=== PATIENT | male | born 1995 | race Caucasian/White ===

== ENCOUNTER 2016-06-14 05:27 | Emergency (ER) | payer OTHER ==
--- NOTE | 2016-06-14 06:00 | EDDOCDS ---
Nurse's Notes [facility] Name: Bogdan Nieves Age: 20 yrs Sex: Male : 1995 Arrival Date: 06/14/2016 Time: 05:27 Bed 10 Private MD: Diagnosis: Laceration without foreign body of scalp Presentation: 06/14 05:34 Presenting complaint: Patient states: slipped and fell, hit head on door hinge. denies af2 loc, nausea, or vomiting. This patient has no additional risk factors. Mechanism of Injury: resulted from a fall. Adult Sepsis Screening: The patient does not have new or worsening altered mentation. Patient's respiratory rate is less than 22. Systolic blood pressure is greater than 100. Patient has a qSOFA score of 0- Negative Sepsis Screen. Suicide/Homicide risk assessment- the patient denies having any suicidal and/or homicidal ideations and does not present with any other emotional, behavioral or mental health complaints. Status: The patient is an active duty early childhood services coordinator. Transition of care: patient was not received from another setting of care. 05:34 Acuity: LEAH Level 3 af2 05:34 Method Of Arrival: Walkin/Carried/Asstd af2 Triage Assessment: 05:36 General: Appears in no apparent distress, Behavior is cooperative. Pain: Denies pain. af2 Pt Declines HIV testing. Neurological: Level of Consciousness is awake, alert, obeys commands, Oriented to person, place, time, Reports no additional symptoms. Respiratory: Airway is patent Respiratory effort is even, unlabored. Derm: lac noted to left posterior head, approximately 2 cm. bleeding controlled, dressing in place. Historical: - Allergies: No known drug Allergies; - Home Meds: 1. none - PMHx: none; - PSHx: none; - Social history: Smoking status: Patient states was never smoker of tobacco. No barriers to communication noted, The patient speaks fluent Turkmen. - Family history: Not pertinent. - : The pt / caregiver states he / she is not on anticoagulants. Home medication list is obtained from the patient. - Exposure Risk Screening:: None identified. Screenin:49 Screening information is obtained from the patient. Fall risk: At risk due to prior 6 history of falls. Assistance ADL's: requires no assistance with activities of daily living. Abuse/DV Screen: The patient / caregiver reports he/she is: not in a situation that causes fear, pain or injury. Nutritional screening: No deficits noted. Advance Directives: Currently, there is no health care proxy. There is no active DNR order. There is no living will. home support is adequate. Assessment: 05:49 General: Appears in no apparent distress, slender, well developed, Behavior is jp6 appropriate for age, cooperative. Pain: Denies pain. Neurological: Level of Consciousness is awake, alert, Oriented to person, place, time. EENT: No deficits noted. Cardiovascular: No deficits noted. Respiratory: No deficits noted. GI: No deficits noted. : No deficits noted. Derm: Skin 3cm laceration back of left side of head. Musculoskeletal: No deficits noted. Vital Signs: 05:33 BP 144 / 75 RA Sitting; Pulse 68; Resp 18 S; Temp 96.9(O); Pulse Ox 99% on R/A; Weight af2 65.77 kg (R); Height 5 ft. 9 in. (175.26 cm) (R); Pain 0/10; 05:33 Body Mass Index 21.41 (65.77 kg, 175.26 cm) af2 Vitals: 05:33 Log In Time: June 14, 2016 at 05:26. af2 Jie Coma Score: 05:34 Eye Response: spontaneous(4). Verbal Response: oriented(5). Motor Response: obeys af2 commands(6). Total: 15. ED Course: 05:28 Patient visited by Jacqui Chao. gjb 05:28 Patient moved to Waiting gjb 05:35 Triage Initiated af2 05:38 Patient visited by Eliana Peters RN. af2 05:38 Patient moved to 10 af2 05:39 Rajesh Whitehead DO is Attending Physician. cs11 05:39 Patient visited by Rajesh Whitehead DO. cs11 05:40 Shasha Cornell RN is Primary Nurse. jp6 05:48 Rene Pang [facility] is Referral Physician. cs11 05:49 The patient / caregiver is instructed regarding the plan of care and ED course. jp6 05:49 No IV's were initiated during this patient's visit. jp6 05:51 Assist provider with laceration repair using trell, Laceration was 2.6 to 7.5 cm. jp6 with a simple repair. Performed by Rajesh Whitehead DO Set up tray. Patient tolerated well. Order Results: There are currently no results for this order. Outcome: 05:49 Discharge ordered by Provider. cs11 05:58 Discharge Assessment: Patient awake, alert and oriented x 3. No cognitive and/or jp6 functional deficits noted. Patient verbalized understanding of disposition instructions. patient administered narcotics - no. The following High Risk Discharge criteria are identified: None. Discharged to home ambulatory, with friend. Condition: good. Discharge instructions given to patient, Instructed on discharge instructions, follow up and referral plans. Demonstrated understanding of instructions, Pt was receptive of discharge instructions/ teaching. No special radiology studies were completed. Property sent home with patient. 05:59 Patient left the ED. jp6 Signatures: Rajesh Whitehead DO DO cs11 Eliana Peters,RN RN isaac2 Jacqui Chao Jessica,RN RN jp6 PIPPA
--- NOTE | 2016-06-14 06:00 | EDDOCDS ---
Physician Documentation [facility] Name: Bogdan Nieves Age: 20 yrs Sex: Male : 1995 Arrival Date: 06/14/2016 Time: 05:27 Bed 10 Private MD: Disposition: 06/14/16 05:49 Discharged to Home/Self Care. Impression: Laceration without foreign body of scalp. - Condition is Stable. - Medication Reconciliation, Local Pharmacy Hours form. - Follow up: Rene Pang [facility]; When: 1 week; Reason: Staple/Suture removal. - Problem is new. - Symptoms have improved. Historical: - Allergies: No known drug Allergies; - Home Meds: 1. none - PMHx: none; - PSHx: none; - Social history: Smoking status: Patient states was never smoker of tobacco. No barriers to communication noted, The patient speaks fluent Uruguayan. - Family history: Not pertinent. - : The pt / caregiver states he / she is not on anticoagulants. Home medication list is obtained from the patient. - Exposure Risk Screening:: None identified. Vital Signs: 06/14 05:33 BP 144 / 75 RA Sitting; Pulse 68; Resp 18 S; Temp 96.9(O); Pulse Ox 99% on R/A; Weight af2 65.77 kg / 145 lbs (R); Height 5 ft. 9 in. (175.26 cm) (R); Pain 0/10; 05:33 Body Mass Index 21.41 (65.77 kg, 175.26 cm) af2 [place] Coma Score: 05:34 Eye Response: spontaneous(4). Verbal Response: oriented(5). Motor Response: obeys af2 commands(6). Total: 15. Procedures: 05:49 Laceration repair:. cs11 Laceration: 05:49 Wound Repair of 3.0cm ( 1.2in ) full thickness laceration to scalp. Distal cs11 neuro/vascular/tendon intact. Anesthesia: Local anesthetic administered with 2.0 mls of 1% lidocaine w/ Epi. Wound prep: Moderate cleansing with betadine by provider. Skin closed with 4 thin layer Huyen using Running sutures. Patient tolerated well. Signatures: Rajesh Whitehead DO DO cs11 Eliana PetersRN RN af2 Cornell,Shasha,RN RN jp6 MTDD
--- NOTE | 2016-06-16 07:00 | EDDOCDS ---
Physician Documentation [facility] Name: Bogdan Nieves Age: 20 yrs Sex: Male : 1995 Arrival Date: 06/14/2016 Time: 05:27 Bed 10 Private MD: Disposition: 06/14/16 05:49 Discharged to Home/Self Care. Impression: Laceration without foreign body of scalp. - Condition is Stable. - Medication Reconciliation, Local Pharmacy Hours form. - Follow up: Rene Pang [facility]; When: 1 week; Reason: Staple/Suture removal. - Problem is new. - Symptoms have improved. Historical: - Allergies: No known drug Allergies; - Home Meds: 1. none - PMHx: none; - PSHx: none; - Social history: Smoking status: Patient states was never smoker of tobacco. No barriers to communication noted, The patient speaks fluent [place]. - Family history: Not pertinent. - : The pt / caregiver states he / she is not on anticoagulants. Home medication list is obtained from the patient. - Exposure Risk Screening:: None identified. Vital Signs: 06/14 05:33 BP 144 / 75 RA Sitting; Pulse 68; Resp 18 S; Temp 96.9(O); Pulse Ox 99% on R/A; Weight af2 65.77 kg / 145 lbs (R); Height 5 ft. 9 in. (175.26 cm) (R); Pain 0/10; 05:33 Body Mass Index 21.41 (65.77 kg, 175.26 cm) af2 [place] Coma Score: 05:34 Eye Response: spontaneous(4). Verbal Response: oriented(5). Motor Response: obeys af2 commands(6). Total: 15. Procedures: 05:49 Laceration repair:. cs11 Laceration: 05:49 Wound Repair of 3.0cm ( 1.2in ) full thickness laceration to scalp. Distal cs11 neuro/vascular/tendon intact. Anesthesia: Local anesthetic administered with 2.0 mls of 1% lidocaine w/ Epi. Wound prep: Moderate cleansing with betadine by provider. Skin closed with 4 thin layer Huyen using Running sutures. Patient tolerated well. MDM: 06:03 Financial registration complete. hs2 06:03 [facility] Payment Agreement was scanned into [employer] and attached to record. hs2 09:02 T-Sheet-- Draft Copy was scanned into [employer] and attached to record. [facility] Signatures: Rajesh Whitehead DO DO cs11 Eliana PetersRN RN af2 Lucila Murguia, Reg Reg hs2 Shasha Cornell,RN RN jp6 Norma Newsome [facility] The chart was reviewed and I authenticate all verbal orders and agree with the evaluation and treatment provided.Attachments: 06:03 [facility] Payment Agreement hs2 09:02 T-Sheet-- Draft Copy [facility] Chart Complete MTDD
--- NOTE | 2016-06-16 07:00 | EDDOCDS ---
Physician Documentation [facility] Name: Bogdan Nieves Age: 20 yrs Sex: Male : 1995 Arrival Date: 06/14/2016 Time: 05:27 Bed 10 Private MD: Disposition: 06/14/16 05:49 Discharged to Home/Self Care. Impression: Laceration without foreign body of scalp. - Condition is Stable. - Medication Reconciliation, Local Pharmacy Hours form. - Follow up: Rene Pang [facility]; When: 1 week; Reason: Staple/Suture removal. - Problem is new. - Symptoms have improved. Historical: - Allergies: No known drug Allergies; - Home Meds: 1. none - PMHx: none; - PSHx: none; - Social history: Smoking status: Patient states was never smoker of tobacco. No barriers to communication noted, The patient speaks fluent North Korean. - Family history: Not pertinent. - : The pt / caregiver states he / she is not on anticoagulants. Home medication list is obtained from the patient. - Exposure Risk Screening:: None identified. Vital Signs: 06/14 05:33 BP 144 / 75 RA Sitting; Pulse 68; Resp 18 S; Temp 96.9(O); Pulse Ox 99% on R/A; Weight af2 65.77 kg / 145 lbs (R); Height 5 ft. 9 in. (175.26 cm) (R); Pain 0/10; 05:33 Body Mass Index 21.41 (65.77 kg, 175.26 cm) af2 [place] Coma Score: 05:34 Eye Response: spontaneous(4). Verbal Response: oriented(5). Motor Response: obeys af2 commands(6). Total: 15. Procedures: 05:49 Laceration repair:. cs11 Laceration: 05:49 Wound Repair of 3.0cm ( 1.2in ) full thickness laceration to scalp. Distal cs11 neuro/vascular/tendon intact. Anesthesia: Local anesthetic administered with 2.0 mls of 1% lidocaine w/ Epi. Wound prep: Moderate cleansing with betadine by provider. Skin closed with 4 thin layer Huyen using Running sutures. Patient tolerated well. MDM: 06:03 Financial registration complete. hs2 06:03 [facility] Payment Agreement was scanned into [employer] and attached to record. hs2 09:02 T-Sheet-- Draft Copy was scanned into [employer] and attached to record. [facility] Signatures: Rajesh Whitehead DO DO cs11 Eliana PetersRN RN af2 Lucila Murguia, Reg Reg hs2 Shasha Cornell,RN RN jp6 Norma Newsome [facility] The chart was reviewed and I authenticate all verbal orders and agree with the evaluation and treatment provided.Attachments: 06:03 [facility] Payment Agreement hs2 09:02 T-Sheet-- Draft Copy [facility] Chart Complete MTDD
--- NOTE | 2016-06-16 07:00 | EDDOCDS ---
Nurse's Notes [facility] Name: Bogdan Nieves Age: 20 yrs Sex: Male : 1995 Arrival Date: 06/14/2016 Time: 05:27 Bed 10 Private MD: Diagnosis: Laceration without foreign body of scalp Presentation: 06/14 05:34 Presenting complaint: Patient states: slipped and fell, hit head on door hinge. denies af2 loc, nausea, or vomiting. This patient has no additional risk factors. Mechanism of Injury: resulted from a fall. Adult Sepsis Screening: The patient does not have new or worsening altered mentation. Patient's respiratory rate is less than 22. Systolic blood pressure is greater than 100. Patient has a qSOFA score of 0- Negative Sepsis Screen. Suicide/Homicide risk assessment- the patient denies having any suicidal and/or homicidal ideations and does not present with any other emotional, behavioral or mental health complaints. Status: The patient is an active duty passenger service representative. Transition of care: patient was not received from another setting of care. 05:34 Acuity: LEAH Level 3 af2 05:34 Method Of Arrival: Walkin/Carried/Asstd af2 Triage Assessment: 05:36 General: Appears in no apparent distress, Behavior is cooperative. Pain: Denies pain. af2 Pt Declines HIV testing. Neurological: Level of Consciousness is awake, alert, obeys commands, Oriented to person, place, time, Reports no additional symptoms. Respiratory: Airway is patent Respiratory effort is even, unlabored. Derm: lac noted to left posterior head, approximately 2 cm. bleeding controlled, dressing in place. Historical: - Allergies: No known drug Allergies; - Home Meds: 1. none - PMHx: none; - PSHx: none; - Social history: Smoking status: Patient states was never smoker of tobacco. No barriers to communication noted, The patient speaks fluent Divehi. - Family history: Not pertinent. - : The pt / caregiver states he / she is not on anticoagulants. Home medication list is obtained from the patient. - Exposure Risk Screening:: None identified. Screenin:49 Screening information is obtained from the patient. Fall risk: At risk due to prior 6 history of falls. Assistance ADL's: requires no assistance with activities of daily living. Abuse/DV Screen: The patient / caregiver reports he/she is: not in a situation that causes fear, pain or injury. Nutritional screening: No deficits noted. Advance Directives: Currently, there is no health care proxy. There is no active DNR order. There is no living will. home support is adequate. Assessment: 05:49 General: Appears in no apparent distress, slender, well developed, Behavior is jp6 appropriate for age, cooperative. Pain: Denies pain. Neurological: Level of Consciousness is awake, alert, Oriented to person, place, time. EENT: No deficits noted. Cardiovascular: No deficits noted. Respiratory: No deficits noted. GI: No deficits noted. : No deficits noted. Derm: Skin 3cm laceration back of left side of head. Musculoskeletal: No deficits noted. Vital Signs: 05:33 BP 144 / 75 RA Sitting; Pulse 68; Resp 18 S; Temp 96.9(O); Pulse Ox 99% on R/A; Weight af2 65.77 kg (R); Height 5 ft. 9 in. (175.26 cm) (R); Pain 0/10; 05:33 Body Mass Index 21.41 (65.77 kg, 175.26 cm) af2 Vitals: 05:33 Log In Time: June 14, 2016 at 05:26. af2 Jie Coma Score: 05:34 Eye Response: spontaneous(4). Verbal Response: oriented(5). Motor Response: obeys af2 commands(6). Total: 15. ED Course: 05:28 Patient visited by Jacqui Chao. gjb 05:28 Patient moved to Waiting gjb 05:35 Triage Initiated af2 05:38 Patient visited by Eliana Peters RN. af2 05:38 Patient moved to 10 af2 05:39 Rajesh Whitehead DO is Attending Physician. cs11 05:39 Patient visited by Rajesh Whitehead DO. cs11 05:40 Shasha Cornell RN is Primary Nurse. jp6 05:48 Rene Pang [facility] is Referral Physician. cs11 05:49 The patient / caregiver is instructed regarding the plan of care and ED course. jp6 05:49 No IV's were initiated during this patient's visit. jp6 05:51 Assist provider with laceration repair using trell, Laceration was 2.6 to 7.5 cm. jp6 with a simple repair. Performed by Rajesh Whitehead DO Set up tray. Patient tolerated well. 06:03 [facility] Payment Agreement was scanned into [employer] and attached to record. hs2 09:02 T-Sheet-- Draft Copy was scanned into [employer] and attached to record. [facility] Order Results: There are currently no results for this order. Outcome: 05:49 Discharge ordered by Provider. cs11 05:58 Discharge Assessment: Patient awake, alert and oriented x 3. No cognitive and/or jp6 functional deficits noted. Patient verbalized understanding of disposition instructions. patient administered narcotics - no. The following High Risk Discharge criteria are identified: None. Discharged to home ambulatory, with friend. Condition: good. Discharge instructions given to patient, Instructed on discharge instructions, follow up and referral plans. Demonstrated understanding of instructions, Pt was receptive of discharge instructions/ teaching. No special radiology studies were completed. Property sent home with patient. 05:59 Patient left the ED. jp6 Signatures: Rajesh Whitehead DO DO cs11 Eliana Peters,RN RN af2 Jacqui Chao Hillary, Reg Reg hs2 Shasha Cornell,RN RN jp6 Norma Newsome se Chart Complete MTDD
== END 2016-06-14 05:59 | disposition home or self-care (01) ==
LOC: M ED 05:27
DX: S01.01XA Laceration without foreign body of scalp, initial encounter (principal); W01.10XA Fall on same level from slipping, tripping and stumbling with subsequent striking against unspecified object, initial encounter; Y92.019 Unspecified place in single-family (private) house as the place of occurrence of the external cause; Y93.01 Activity, walking, marching and hiking; Y99.8 Other external cause status